=== PATIENT | female | born 1940 | race Caucasian/White ===

== ENCOUNTER 2018-02-24 02:27 | Inpatient (IN) | payer OTHER ==
[~2018-02-24] VITALS: Ht 170.2 cm; Wt 77.3 kg
[~2018-02-24 02:27] MED LIST: AMLODIPINE BESYL5 M1 PO; AVAPRO150 M1 PO; HYDROCHLOROTHIA25 M1 PO; MULTIVITAMINS1 EAC9 PO; ROLAIDS CHEWAB1 EACH PO; VITAMIN D1000 UNIT PO
--- NOTE | 2018-02-24 12:52 | Admission Core Measures ---
Acute Coronary Syndrome (CM) ACS Core Measures Acute Coronary Syndrome Diagnosis No Congestive Heart Failure (NEW) CHF Core Measures Congestive Heart Failure Diagnosis No Cerebrovascular Accident CVA Core Measures CVA/TIA Diagnosis No Venous Thromboembolism VTE Core Harry (View Protocol) VTE Risk Factors Surgery No Mechanical VTE Prophylaxis d/t N/A MechProphylax Ordered No VTE Pharm Prophylaxis d/t NA PharmProphylax ordered Problem List As ranked by this Provider includes Assessment & Plan 1. Status post total hip replacement, right HOME MEDS Home Med List Amlodipine Besylate 5 MG TABLET 1 TAB PO DAILY BP (Reported) Calcium Carb/Magnesium Hydrox (Rolaids Chewable Tablet) 550 MG-110 MG TAB.CHEW 1 TAB PO QPM GI (Reported) Cholecalciferol (Vitamin D3) (Vitamin D) 1,000 UNIT TABLET 1 TAB PO DAILY SUPPLEMENT (Reported) Hydrochlorothiazide 25 MG TABLET 1 TAB PO DAILY DIURETIC/BP (Reported) Irbesartan (Avapro) 150 MG TABLET 1 TAB PO DAILY BP (Reported) Multiple Vitamin (Multivitamins) 1 EACH TABLET 1 TAB PO DAILY SUPPLEMENT ( Reported)
--- NOTE | 2018-02-24 12:54 | Surg Short-stay <48hrs Dis Sum ---
Visit Information Visit Dates Admission Date: 02/24/18 Discharge Date: 02/25/18 Surgical Short Stay DC Summary Admission Diagnosis: DJD/OA Final Diagnosis: Same, s/p R JEFFERY Procedure(s): R JEFFERY - see operative report Summary/Significant Findings: Pt underwent r JEFFERY by Dr Evans and was brought to the PACU in stable condition. Post op she was seen by PT and ambulated WBAT. She was able to void without difficulty, her vitals remained stable, her pain was well controlled and she was deemed stable for discharge home with services. Condition at Discharge: good Discharge Disposition: home health services Discharge instructions provided to patient/family: Yes Post discharge follow-up plan: Scheduled appt with Dr Evans
--- NOTE | 2018-02-24 12:55 | Patient Discharge Instructions ---
Discharge Instructions General Discharge Information You were seen/treated for: Hip pain You had these procedures: Total hip replacement Watch for these problems: See pre printed sheet Other wound care: See pre printed sheet Diet Continue normal diet: Yes Activity Activity Self Limited: Yes Activity Limited to: Weight bear as tolerated Acute Coronary Syndrome Inclusion Criteria At DC or during hospital stay patient has or had the following: Discharge Core Measures Meds if any: Prescribed or Continued at Discharge Meds if any: NOT Prescribed or Continued at Discharge Congestive Heart Failure Inclusion Criteria At DC or during hospital stay patient has or had the following: Discharge Core Measures Meds if any: Prescribed or Continued at Discharge Meds if any: NOT Prescribed or Continued at Discharge Cerebrovascular accident Inclusion Criteria At DC or during hospital stay patient has or had the following: CVA/TIA Diagnosis No Discharge Core Measures Meds if any: Prescribed or Continued at Discharge Meds if any: NOT Prescribed or Continued at Discharge Venous thromboembolism Discharge Core Measures - Per Current guidelines, there needs to be overlap - treatment for the first 5 days of Warfarin therapy. - If discharged on Warfarin prior to 5 days of - overlap therapy, the patient will need to be - assessed for post discharge needs including - *Post discharge parental anticoagulation - *Warfarin and/or parental anticoagulation education - *Follow up date to check INR post discharge Meds if any: Prescribed or Continued at Discharge Note: Overlap Therapy is Warfarin and Anticoagulant Meds if any: NOT Prescribed or Continued at Discharge
[2018-02-24] MEDS ORDERED: MIRALAX17 G1 PO (12:56)
[2018-02-24] MEDS ORDERED: ASPIRIN EC81 M1 PO (12:56)
[2018-02-24] MEDS ORDERED: DILAUDID2 M1 PO (12:56)
[2018-02-24] MEDS ORDERED: COLACE100 M1 PO (12:56)
[2018-02-24] MEDS ORDERED: OMEPRAZOLE20 M3 PO (12:56)
--- NOTE | 2018-02-24 15:44 | RADIOLOGY REPORT ---
EXAMINATION: XR HIP, RIGHT CLINICAL INFORMATION: Status post right total hip replacement. COMPARISON: 12/29/2015 TECHNIQUE: AP and crosstable lateral views of the right hip. FINDINGS: Prosthetic components of the right total hip arthroplasty are appropriately aligned. No periprosthetic fracture. Gas from recent surgery is present in the surrounding soft tissues. IMPRESSION: Normal postoperative appearance of the right total hip prosthesis.
--- NOTE | 2018-02-24 16:01 | Operative Report ---
Operative/Inv Procedure Report Surgery Date: 02/24/18 Name of Procedure: Right total hip replacement Pre-Operative Diagnosis: Primary right hip DJD Post-Operative Diagnosis: Same Estimated Blood Loss: 250 Surgeon/Fabrication And Layout Craftsman: Cristina WOLF,Philip Boyer Anesthesia: block Operative/Procedure Note Note: Description of Procedure: The patient was taken to the operating room and positively identified. After induction of spinal anesthesia and administration of appropriate pre-operative antibiotics, the patient was positioned supine on the operating room table and all bony prominences were well padded. After performing a surgical timeout, the right lower extremity was prepped and draped in the usual sterile fashion. A direct anterior approach was made to the right hip. The incision was carried sharply through superficial soft tissues to the level of the fascia. Meticulous hemostasis was maintained with Bovie electocautery. The fascia over the tensor fascia amalia muscle was opened sharply and the interval between the TFL and the sartorius was entered bluntly taking care to stay lateral to the lateral femoral cutaneous nerve. Retractors were placed around the femoral neck and the pericapsular fat was identified. The ascending branches of the lateral femoral circumflex vessels were identified and carefully coagulated. The pericapsular fat and anterior capsule were then resected. A napkin ring osteotomy was performed and the femoral head was removed without difficulty. Attention was then turned to the acetabulum. After appropriate placement of retractors, the acetabulum was exposed. Soft tissue was cleaned from the acetabular margin and notch. Overhanging osteophytes were removed and the teardrop was exposed. The acetabulum was then sequentially reamed to accept a 58 mm Ubaldo Tritanium hemispherical solid shell. This was impacted into place in the appropriate position and fitted with a 36 mm Trident X3 zero degree polyethylene insert. Attention was then turned to the femur. After performing the appropriate ligament releases, the proximal femur was exposed. It was then sequentially broached to accept a size 5 Ubaldo Accolade 2 stem. This was trialed for leg length and stability. The trial component was removed and the final component was impacted into place. The trunnion was carefully cleaned and fit with a 36 mm, +5 Biolox delta ceramic femoral head. The hip was reduced and put through a full range of motion and found to be stable. The articular space was then irrigated with sterile saline. The periarticular soft tissues were infilitrated with Marcaine. The fascial layer was closed with interrupted #1 vicryl suture and the skin was re-approximated with interrupted 2 -0 vicryl. The skin was closed with a running 3-0 V-Lock suture. Steri-strips and a sterile dressing were applied. The patient was awakened and taken to the recovery room in satisfactory condition.
[2018-02-24 16:27] VITALS: BP 138/66
--- NOTE | 2018-02-24 17:17 | PN- Orthopedic ---
Subjective Subjective: POST-OP CHECK pt in bed, minimal pain well controlled with medication. No nausea, toelrating diet. Has not been OOB yet. Denies paresthesias Denies Cp/SOB/KAM Objective Vital Signs and I&Os Vital Signs Date Time Temp Pulse Resp B/P B/P Pulse O2 O2 Flow FiO2 Mean Ox Delivery Rate 02/24 1627 97.4 68 18 138/66 97 Room Air Physical Exam: gen- NAD resp-clear cardiac- RRR abd- soft, NT ext- right hip dressing clean and dry, thigh is soft and nnontender. no calf tenderness. 2+DP pulse. distal sensation and motor function intact Assessment/Plan Assessment/Plan 77yo F with hypertension SP R JEFFERY POD0. stable pain management bowel regimen pt- wbat w rw dvt ppx- asa, alps and teds reg diet- IVF overnight regular home meds dressing change POD2 DC planning- likely home tomorrow pending cleared by physical therapy Core Measures Venous Thromboembolism VTE Risk Factors Surgery No Mechanical VTE Prophylaxis d/t N/A MechProphylax Ordered No VTE Pharm Prophylaxis d/t NA PharmProphylax ordered
[2018-02-24 18:00] VITALS: BP 124/50
[2018-02-24 20:12] VITALS: BP 142/50
[2018-02-24 22:00] VITALS: BP 124/50
[2018-02-25 02:08] VITALS: BP 143/49
[2018-02-25 06:00] VITALS: BP 136/55
--- NOTE | 2018-02-25 08:22 | PN- Orthopedic ---
Subjective Subjective: No acute events overnight, mild soreness in the right hip when she attempts to move otherwise she has no pain. She is in good spirits. Objective Vital Signs and I&Os Vital Signs Date Time Temp Pulse Resp B/P B/P Pulse O2 O2 Flow FiO2 Mean Ox Delivery Rate 02/25 0600 98.1 76 16 136/55 97 Room Air 02/25 0208 97.8 70 16 143/49 96 Room Air 02/24 2200 97.9 68 18 124/50 94 Room Air 02/24 2012 97.7 61 18 142/50 95 Room Air 02/24 1800 98.4 70 18 124/50 97 Room Air 02/24 1627 97.4 68 18 138/66 97 Room Air Intake & Output 02/25 1600 02/25 0802/25 0000 02/24 1600 02/24 0802/24 0000 Intake Total 570 Output Total 100 500 Balance 470 -500 Intake, IV 450 Intake, Oral 120 Output, Urine 100 500 Patient 170 lb Weight Weight Bed scale Measurement Method Physical Exam: Well-developed well-nourished no apparent distress. HEENT: Atraumatic, extraocular motion intact Neck: Supple, no lymphadenopathy Respiratory: No respiratory distress Extremities: No edema RIGHT lower extremity hip dressing in place, Dressing clean dry and intact Mild thigh swelling No signs of infection. No shortening or rotation Hip range of motion is limited and without unexpected pain Neurovascularly intact distally Bilateral calves are supple, nontender. Neuro: Alert and oriented x3 Psych: Mood affect normal, normal memory normal judgment. Skin: Warm and dry, no rash on exposed skin Results Last 48 Hours of Labs: Laboratory Tests 02/25 0725 Chemistry Sodium Pending Potassium Pending Chloride Pending Carbon Dioxide Pending Anion Gap Pending BUN Pending Creatinine Pending BUN/Creatinine Ratio Pending Assessment/Plan Assessment/Plan Postop day #1 status post right total hip arthroplasty anterior approach. Perioperative antibiotics. Pain medication as needed. Out of bed Physical therapy, weightbearing as tolerated Regular diet Follow a.m. labs: monitor for acute blood loss anemia and electrolyte abnormalities Aspirin for DVT prophylaxis ALPS for DVT prophylaxis Regular home meds Dressing change postop day 2 Anticipate discharge home today with [facility] services if clears physical therapy and labs acceptable Core Measures Venous Thromboembolism VTE Risk Factors Surgery No Mechanical VTE Prophylaxis d/t N/A MechProphylax Ordered No VTE Pharm Prophylaxis d/t NA PharmProphylax ordered
[2018-02-25 09:15] LABS: ABSOLUTE BASOPHIL COUNT 0 /CUMM (0.0-0.2); ABSOLUTE EOSINOPHIL COUNT 0 /CUMM (0.0-0.7); ABSOLUTE LYMPH COUNT 1.3 /CUMM (1.2-3.4); ABSOLUTE MONOCYTE COUNT 0.6 /CUMM (0.10-0.60); BASOPHIL % 0.2 % (0.0-2.0); EOSINOPHIL % 0.4 % (0-5); GRANULOCYTE % 80.3 % (42.2-75.2); HEMATOCRIT 33.4 % (37-47); MEAN CORPUSCULAR HGB 27.6 PG (27.0-31.0); MEAN CORPUSCULAR HGB CONC 33.4 G/DL (33.0-37.0); MEAN CORPUSCULAR VOLUME 82.6 FL (81.0-99.0); MEAN PLATELET VOLUME 10.3 FL (7.4-10.4); PLATELET COUNT 178 /CUMM (130-400); RBC DISTRIBUTION WIDTH 14.7 % (11.5-14.5); RED BLOOD CELL CT 4.04 /CUMM (4.20-5.40)
[2018-02-25 09:59] VITALS: BP 128/78
[2018-02-25 10:05] VITALS: BP 107/50
== END 2018-02-25 14:16 | disposition home health service (06) | DRG 470 ==
LOC: SDA 02:27 → ENRESERV 14:45 → ENTRNSPT 15:53 → EDTRNSPTSTS 16:03 → 2NB 16:10 → CMPTRNSPT 16:22 → ENPENDDIS 02-25 09:39 → ENTRNSPT 02-25 14:02 → EDTRNSPTSTS 02-25 14:12 → EDTRNSPT 02-25 14:12 → 2NB 02-25 14:16 → CMPTRNSPT 02-25 14:51
PROVIDERS: Physician Assistant Surgical
PROC: 0SR904A Replacement of Right Hip Joint with Ceramic on Polyethylene Synthetic Substitute, Uncemented, Open Approach (ICD-10-PCS; principal; 2018-02-24)
DX: M16.11 Unilateral primary osteoarthritis, right hip (principal); I10 Essential (primary) hypertension; K21.9 Gastro-esophageal reflux disease without esophagitis
CPT/HCPCS: 2NBP; 36415; 36592; 73502-RT; 82436; 97116-GO; 97161-GP; 97530-GO; J0131; J0690; J0735; J3370; J3490; J7040; J7042